=== PATIENT | female | born 1965 | race African-American/Black ===

== ENCOUNTER 2016-12-11 16:57 | Emergency (ER) | payer MEDICAID ==
[~2016-12-11] VITALS: Ht 157.5 cm; Wt 86.2 kg
[~2016-12-11 16:57] MED LIST: NORCO 10/325 MG1 TAB PO; NORVASC5 M1 PO
[2016-12-11 17:17] VITALS: BP 152/89
[2016-12-11] MEDS ORDERED: ORETIC25 MG PO (17:24)
[2016-12-11] MEDS ORDERED: GLUCOPHAGE1000 MG PO (17:24)
--- NOTE | 2016-12-11 20:38 | NUR ---
AMBULATED TO ER BED 7
--- NOTE | 2016-12-11 20:43 | NUR ---
PT BIB SELF TO ED WITH C/O COUGH WITH GEN WEAKNESS X 2 WEEKS. PT STATES MED HX OF COPD, BREAST, COLON AND STOMACH CANCER. PT ALSO STATED SHE WAS ADMITTED A PATIENT AT [facility] X 2 WEEKS AGO. DENIES N/V/D; SKIN IS PINK/WARM/DRY; AAOX4 WITH EVEN AND STEADY GAIT; LUNGS CLEAR BL; HR EVEN AND REGULAR; PT DENIES ANY FEVER AT THIS TIME; PATIENT STATES PAIN OF 8/10 AT THIS TIME; VSS; PATIENT POSITIONED FOR COMFORT; HOB ELEVATED; BEDRAILS UP X2; BED DOWN. ER MD MADE AWARE OF PT STATUS.
[2016-12-11] MEDS ORDERED: methylPREDNISolone SS 125 MG in WATER STERILE 2 ML IM ONE (22:05)
[2016-12-11] MEDS ORDERED: ALBUTEROL 0.083% 2.5 MG/3 ML NEBU INH ONE (22:05)
--- NOTE | 2016-12-11 22:47 | NUR ---
PT RESTING IN BED. NO S/S OF ACUTE DISTRESS AT THIS TIME
[2016-12-11] MEDS ORDERED: KETOROLAC 60 MG/2 ML VIAL IM ONE (23:00)
[2016-12-11 23:10] VITALS: BP 132/85
--- NOTE | 2016-12-11 23:10 | NUR ---
Patient discharged with v/s stable. Written and verbal after care instructions given and explained. Patient alert, oriented and verbalized understanding of instructions. Ambulatory with steady gait. All questions addressed prior to discharge. ID band removed. Patient advised to follow up with PMD. Rx of MOTRIN, AMOXICILLIN, DETROMETHORPHAN HYDROBROMIDE given. Patient educated on indication of medication including possible reaction and side effects. Opportunity to ask questions provided and answered.
== END 2016-12-11 23:10 | disposition home or self-care (01) ==
LOC: MED 16:57
DX: J44.9 Chronic obstructive pulmonary disease, unspecified (principal); E11.9 Type 2 diabetes mellitus without complications; I10 Essential (primary) hypertension; Z85.3 Personal history of malignant neoplasm of breast; Z85.038 Personal history of other malignant neoplasm of large intestine; Z85.028 Personal history of other malignant neoplasm of stomach
CPT/HCPCS: 71020; 94640; 94664; 96372; 99284; J2930; J7613